=== PATIENT | male | born 1950 | race Caucasian/White ===

== ENCOUNTER → 2017-08-27 | Outpatient (CLI) | payer OTHER ==
[~2017-08-27] MED LIST: AMLODIPINE BESY10 MG; HYDROCODON-ACE1 EAC8; KEFLEX500 MG; LEVOXYL112 MCG; LIPITOR40 MG; OMEPRAZOLE 20 M20 M1; OMEPRAZOLE 20 M20 MG; VIBRAMYCIN 100100 M2
== END ==
LOC: RAD 10:43
DX: Z01.818 Encounter for other preprocedural examination (principal)

== ENCOUNTER → 2018-07-10 | Outpatient (CLI) | payer OTHER | LOC: RAD 09:59 | DX: Z01.818 Encounter for other preprocedural examination (principal) ==